=== PATIENT | female | born 1970 | race Caucasian/White ===

== ENCOUNTER 2022-05-13 15:00 | Outpatient (RCR) | payer OTHER, SELFPAY | END 2022-06-25 12:00 | disposition home or self-care (01) | LOC: HO.PT 15:00 | PROVIDERS: PCP Internal Medicine; Visit Provider Nurse Practitioner Adult Health | DX: N39.3 Stress incontinence (female) (male) (principal) | CPT/HCPCS: 97112; 97162 ==